=== PATIENT | female | born 1985 | race Native Hawaiian/Other Pacific Islander ===

== ENCOUNTER 2019-12-13 15:08 | Inpatient (IN) | payer MEDICARE, MEDICAID ==
[~2019-12-13] VITALS: Ht 149.9 cm; Wt 61.4 kg
[2019-12-13] MEDS ORDERED: LORazepam 2 mg/ml vial IV ONE (16:30)
[2019-12-13] MEDS ORDERED: LIDOcaine 2% 10ml TOPICAL JELLY (Urojet) MM ONE (16:45)
[2019-12-13] MEDS ORDERED: morphine 4 MG/ML inj SYRINge IV ONE (17:10)
[2019-12-13 17:30] LABS: BASOPHILS % (AUTO) 0.1 % (0-1); EOSINOPHILS % (AUTO) 0.1 % (0-6); HEMATOCRIT 46.7 % (35.0-45.0); HEMOGLOBIN 15.6 g/dl (12.0-16.0); LYMPHOCYTES # (AUTO) 0.4 X10'3 (1.1-4.8); MEAN CORPUSCULAR HEMOGLOBIN 32.2 PG (27.0-31.0); MEAN CORPUSCULAR HGB CONC 33.4 g/dL (33.0-36.5); MEAN CORPUSCULAR VOLUME 96.6 FL (78-98); MEAN PLATELET VOLUME 6.9 FL (7.4-10.4); MONOCYTES # (AUTO) 0.6 X10'3 (0-0.9); MONOCYTES % (AUTO) 2.9 % (2-12); NEUTROPHILS % (AUTO) 94.9 % (42-75); PLATELET COUNT 311 X10'3 (140-440); RED BLOOD COUNT 4.83 X10'6 (4.20-5.60); RED CELL DISTRIBUTION WIDTH 13.5 % (11.5-14.5); WHITE BLOOD COUNT 20.1 X10'3 (4.5-11.0)
--- NOTE | 2019-12-13 17:35 | NUR ---
Windy [phone]
[2019-12-13 17:42] LABS: ALANINE AMINOTRANSFERASE 27 U/L (12-78); ALBUMIN 4.2 G/DL (3.4-5.0); ALKALINE PHOSPHATASE 64 IU/L (46-116); ANION GAP 12 (8-16); ASPARTATE AMINO TRANSFERASE 22 U/L (10-37); BILIRUBIN,TOTAL 0.9 MG/DL (0.1-1.0); BLOOD UREA NITROGEN 17 MG/DL (7-18); BUN/CREATININE RATIO 16.3 (6.6-38.0); CALCIUM 8.8 MG/DL (8.5-10.1); CHLORIDE 101 MMOL/L (99-107); CREATININE 1.04 MG/DL (0.40-0.90); GLUCOSE 158 MG/DL (70-104); SODIUM 136 MMOL/L (135-145); TOTAL CARBON DIOXIDE 23.1 MMOL/L (24-32); TOTAL PROTEIN 8.5 G/DL (6.4-8.2); eGFR 61 ML/MIN
[2019-12-13 17:43] LABS: CLARITY,URINE CLOUDY (Clear); COLOR,URINE YELLOW (Yellow); GLUCOSE, URINE NEGATIVE (Neg); KETONES,URINE TRACE mg/dl (Neg); LEUKOCYTE ESTERASE ,URINE NEGATIVE (Neg); NITRITES, URINE POSITIVE (Neg); OCCULT BLOOD,URINE TRACE-INTACT (Neg); PH,URINE 5.5 (4.8-8.0); PROTEIN,URINE NEGATIVE (Neg)
[2019-12-13 17:46] LABS: UA COLLECTION TYPE VOIDED
[2019-12-13 18:02] LABS: BACTERIA,URINE 4+ /HPF (Neg); MUCUS STRANDS MODERATE /LPF (Neg); RBC,URINE 0-2 /HPF (0-2); SQUAMOUS EPITHELIAL CELL,UR MODERATE /LPF (FEW)
[2019-12-13] MEDS ORDERED: magnesium 4gm in 100ml NS 100 ML IV PRN (19:25)
[2019-12-13] MEDS ORDERED: ondansetron/PF 4mg/2ml inj IV PRN (19:25)
[2019-12-13] MEDS ORDERED: potassium CL 10mEq/100ml bag 100 ML IV PRN ×2 (19:25)
[2019-12-13] MEDS ORDERED: HYDROcodone/acetaminophen 5mg/325mg tablet PO PRN (19:25)
[2019-12-13] MEDS ORDERED: mag hydrox/Alum hydrox/simeth 30ml oral suspension PO PRN (19:25)
[2019-12-13] MEDS ORDERED: magnesium hydroxide 30ml (MOM) UD suspension PO PRN (19:25)
[2019-12-13] MEDS ORDERED: metoclopramide 5 mg/ml inj IV PRN (19:25)
[2019-12-13] MEDS ORDERED: CefTRIAXone/D5W-Rocephin 1gm 50 ML IV ONE (19:25)
[2019-12-13] MEDS ORDERED: magnesium 2GM in 50ml NS 50 ML IV PRN (19:25)
[2019-12-13] MEDS ORDERED: acetaminophen 650mg rectal suppository RC PRN (19:25)
[2019-12-13] MEDS ORDERED: potassium Cl 20 mEq SR tablet PO PRN ×2 (19:25)
[2019-12-13] MEDS ORDERED: magnesium Cl slow-release 64mg tablet PO PRN (19:25)
[2019-12-13] MEDS ORDERED: acetaminophen 325mg tablet PO PRN ×2 (19:25)
[2019-12-13] MEDS ORDERED: HYDROcodone/acetaminophen 10/325mg tab PO PRN (19:25)
[2019-12-13] MEDS ORDERED: bisacodyl 10mg suppository rectal RC PRN (19:25)
[2019-12-13] MEDS ORDERED: HYDROmorphone 1 mg/ml syringe IV PRN (19:25)
[2019-12-13] MEDS ORDERED: clindamycin 600mg/D5W 50ml 50 ML IV ONE (19:25)
[2019-12-13 19:45] LABS: MAGNESIUM 1.8 MG/DL (1.5-2.4); PHOSPHORUS 3.2 MG/DL (2.3-4.5)
[2019-12-13] MEDS ORDERED: tacrolimus anhydrous 1mg capsule PO SCH (20:00)
[2019-12-13] MEDS ORDERED: AZAT50TA18 PO (20:02)
[2019-12-13] MEDS ORDERED: PRED2.5T4 PO (20:02)
[2019-12-13] MEDS ORDERED: TACR1CAP PO (20:02)
[2019-12-13] MEDS: normal saline 1000ml 1,000 ML IV SCH (20:20)
[2019-12-13] MEDS ORDERED: temazepam 15mg capsule PO PRN (21:00)
[2019-12-13] MEDS: K and/or MAG REPLACEMENT MC SCH (21:40)
[2019-12-13] MEDS: diatr meglu/diatrizoate 30ml oral sol.-(3 dose) bottle PO SCH (21:46)
[2019-12-13] MEDS: vancomycin/NS 1 GM ADD-VANTAGE 250 ML IV SCH (21:46)
[2019-12-13] MEDS ORDERED: Chloraseptic (Phenol) Spray 177ml MM PRN ×2 (22:40→22:55)
[2019-12-13] MEDS: HYDROmorphone inj. 0.5 MG/0.5 ML DISP.SYRIN IV PRN (23:15)
[2019-12-13 23:21] VITALS: BP 108/73
[2019-12-14] MEDS: normal saline 1000ml 1,000 ML IV SCH ×3 (05:23→19:50)
[2019-12-14] MEDS: HYDROmorphone inj. 0.5 MG/0.5 ML DISP.SYRIN IV PRN ×3 (05:28→23:07)
[2019-12-14 06:14] LABS: BASOPHILS # (AUTO) 0.1 X10'3 (0-0.2); BASOPHILS % (AUTO) 0.5 % (0-1); EOSINOPHILS # (AUTO) 0.2 X10'3 (0-0.9); EOSINOPHILS % (AUTO) 1.4 % (0-6); HEMATOCRIT 41.1 % (35.0-45.0); HEMOGLOBIN 13.7 g/dl (12.0-16.0); LYMPHOCYTES # (AUTO) 0.8 X10'3 (1.1-4.8); LYMPHOCYTES % (AUTO) 7.9 % (21-51); MEAN CORPUSCULAR HEMOGLOBIN 32.2 PG (27.0-31.0); MEAN CORPUSCULAR HGB CONC 33.3 g/dL (33.0-36.5); MEAN CORPUSCULAR VOLUME 96.6 FL (78-98); MEAN PLATELET VOLUME 6.9 FL (7.4-10.4); MONOCYTES # (AUTO) 0.6 X10'3 (0-0.9); MONOCYTES % (AUTO) 5.4 % (2-12); NEUTROPHILS # (AUTO) 9.1 X10'3 (1.8-7.7); NEUTROPHILS % (AUTO) 84.8 % (42-75); PLATELET COUNT 238 X10'3 (140-440); RED BLOOD COUNT 4.26 X10'6 (4.20-5.60); RED CELL DISTRIBUTION WIDTH 13.6 % (11.5-14.5); WHITE BLOOD COUNT 10.7 X10'3 (4.5-11.0)
--- NOTE | 2019-12-14 06:20 | NUR ---
Problems reprioritized. Patient report given, questions answered & plan of care reviewed with Mallika LONG.
--- NOTE | 2019-12-14 06:24 | NUR ---
Patient in room [facility]. I have received report from Wendi LONG and had the opportunity to ask questions and assume patient care.
[2019-12-14 06:29] LABS: ALANINE AMINOTRANSFERASE 20 U/L (12-78); ALBUMIN 3.3 G/DL (3.4-5.0); ALKALINE PHOSPHATASE 49 IU/L (46-116); ANION GAP 11 (8-16); ASPARTATE AMINO TRANSFERASE 16 U/L (10-37); BILIRUBIN,TOTAL 0.8 MG/DL (0.1-1.0); BLOOD UREA NITROGEN 11 MG/DL (7-18); BUN/CREATININE RATIO 11.7 (6.6-38.0); CALCIUM 7.8 MG/DL (8.5-10.1); CHLORIDE 109 MMOL/L (99-107); CREATININE 0.94 MG/DL (0.40-0.90); GLUCOSE 97 MG/DL (70-104); MAGNESIUM 1.7 MG/DL (1.5-2.4); PHOSPHORUS 2.3 MG/DL (2.3-4.5); POTASSIUM 4.1 MMOL/L (3.5-5.1); SODIUM 141 MMOL/L (135-145); TOTAL CARBON DIOXIDE 20.6 MMOL/L (24-32); TOTAL PROTEIN 6.7 G/DL (6.4-8.2); eGFR 68 ML/MIN
--- NOTE | 2019-12-14 06:30 | NUR ---
Patient in room [facility]. I have received report from Gloria Cazares and had the opportunity to ask questions and assume patient care.
[2019-12-14 07:00] VITALS: BP 103/65
[2019-12-14] MEDS: diatr meglu/diatrizoate 30ml oral sol.-(3 dose) bottle PO SCH ×2 (07:11→10:16)
[2019-12-14] MEDS: CefTRIAXone/D5W-Rocephin 1gm 50 ML IV SCH (07:12)
[2019-12-14 07:28] VITALS: BP 103/65
[2019-12-14] MEDS: vancomycin/NS 1 GM ADD-VANTAGE 250 ML IV SCH ×2 (08:11→19:48)
[2019-12-14] MEDS: K and/or MAG REPLACEMENT MC SCH ×2 (08:16→20:00)
--- NOTE | 2019-12-14 09:30 | NUR ---
Patient in room [facility]. I have received report from MERCEDES Tena and had the opportunity to ask questions and assume patient care.
--- NOTE | 2019-12-14 10:28 | NUR ---
Patient to CT at this time
[2019-12-14] MEDS: tacrolimus anhydrous 1mg capsule PO SCH ×2 (11:02→23:07)
[2019-12-14] MEDS: predniSONE 5mg tablet PO SCH (11:02)
[2019-12-14 11:58] VITALS: BP 111/68
--- NOTE | 2019-12-14 13:10 | NUR ---
PAGER ID: [phone] MESSAGE: MERCEDES Silva [phone] results are up, patient still feeling okay, no nausea. Okay to keep her clamped still? Thank you
--- NOTE | 2019-12-14 18:00 | NUR ---
Nas in room [facility]. I have received report from and had the opportunity to ask questions and assume patient care.
--- NOTE | 2019-12-14 18:17 | NUR ---
Problems reprioritized. Patient report given, questions answered & plan of care reviewed with MERCEDES Medellin.
[2019-12-14 20:00] VITALS: BP 110/75
--- NOTE | 2019-12-14 23:49 | NUR ---
Gave patient dilaudid 0.5 ml for pain in her wrist from her iv. The scanner on the computer would not work
[2019-12-15] VITALS: BP 105/73
--- NOTE | 2019-12-15 06:41 | NUR ---
Problems reprioritized. Patient report given, questions answered & plan of care reviewed with Amy LONG.
--- NOTE | 2019-12-15 06:43 | NUR ---
Patient in room [facility]. I have received report from MERCEDES Med[place]in and had the opportunity to ask questions and assume patient care.
[2019-12-15 07:00] VITALS: BP 115/73
[2019-12-15] MEDS ORDERED: VANCOMYCIN LEVEL IV ONE (07:30)
[2019-12-15 07:41] LABS: BASOPHILS % (AUTO) 0.5 % (0-1); EOSINOPHILS # (AUTO) 0.2 X10'3 (0-0.9); EOSINOPHILS % (AUTO) 3.4 % (0-6); HEMOGLOBIN 12.5 g/dl (12.0-16.0); LYMPHOCYTES # (AUTO) 0.9 X10'3 (1.1-4.8); LYMPHOCYTES % (AUTO) 14.9 % (21-51); MEAN CORPUSCULAR HEMOGLOBIN 32.4 PG (27.0-31.0); MEAN CORPUSCULAR HGB CONC 33.7 g/dL (33.0-36.5); MEAN PLATELET VOLUME 6.3 FL (7.4-10.4); MONOCYTES # (AUTO) 0.4 X10'3 (0-0.9); MONOCYTES % (AUTO) 6.8 % (2-12); NEUTROPHILS # (AUTO) 4.5 X10'3 (1.8-7.7); NEUTROPHILS % (AUTO) 74.4 % (42-75); PLATELET COUNT 234 X10'3 (140-440); RED BLOOD COUNT 3.85 X10'6 (4.20-5.60); RED CELL DISTRIBUTION WIDTH 13.7 % (11.5-14.5); WHITE BLOOD COUNT 6.1 X10'3 (4.5-11.0)
[2019-12-15 07:54] LABS: ALANINE AMINOTRANSFERASE 20 U/L (12-78); ALBUMIN/GLOBULIN RATIO 0.9 (1.1-1.5); ALKALINE PHOSPHATASE 40 IU/L (46-116); ANION GAP 7 (8-16); ASPARTATE AMINO TRANSFERASE 15 U/L (10-37); BILIRUBIN,TOTAL 0.4 MG/DL (0.1-1.0); BLOOD UREA NITROGEN 7 MG/DL (7-18); BUN/CREATININE RATIO 7.6 (6.6-38.0); CALCIUM 7.9 MG/DL (8.5-10.1); CHLORIDE 110 MMOL/L (99-107); CREATININE 0.92 MG/DL (0.40-0.90); GLUCOSE 96 MG/DL (70-104); MAGNESIUM 1.7 MG/DL (1.5-2.4); PHOSPHORUS 2.5 MG/DL (2.3-4.5); POTASSIUM 3.7 MMOL/L (3.5-5.1); SODIUM 141 MMOL/L (135-145); TOTAL CARBON DIOXIDE 24.1 MMOL/L (24-32); TOTAL PROTEIN 6.3 G/DL (6.4-8.2); VANCOMYCIN,TROUGH 11.6 UG/ML (6.0-14.0); eGFR 70 ML/MIN
[2019-12-15] MEDS: K and/or MAG REPLACEMENT MC SCH (08:00)
[2019-12-15] MEDS: CefTRIAXone/D5W-Rocephin 1gm 50 ML IV SCH (08:11)
[2019-12-15] MEDS: vancomycin/NS 1 GM ADD-VANTAGE 250 ML IV SCH (09:10)
[2019-12-15] MEDS: predniSONE 5mg tablet PO SCH (11:26)
[2019-12-15] MEDS: tacrolimus anhydrous 1mg capsule PO SCH (11:27)
--- NOTE | 2019-12-15 11:56 | NUR ---
Pt D/C'd home in stable condition. Tolerated regular diet well. medication and discharged instructions given to pt. IV removed with cannula intact. Pt was escorted to main lobby on w/c. left the hospital via private vehicle accompanied by .
[2019-12-15] MEDS ORDERED: VANCOmycin 1250MG/NS 250ml Bag 250 ML IV SCH (20:00)
--- NOTE | 2019-12-16 10:14 | NUR ---
Case Management DC follow up: spoke to pt via telephone. s/p: sbo Reports: "doing good, minor abd pain, bloating, passing gas, a little dizzy sometimes". Reports staying hydrated, eating light, soft portions. Pt having regular bowel movements, a little diarrhea. Pt states she feels it is feom the contrast r/t tests in hospital. states good support in spouse. Denies: acute/continuous CP, emergent SOB, resp distress, N/V, ROS[place]HAL, blurry vision, vertigo, syncope episodes, weakness,emergent general pain,, bladder pain, dysuria, polyuria, hematuria, retention, constipation, fever, unexplained bleeding, bruising. Verbalizes understanding of s/s that warrant 9-11/ER visit for further evaluation. Verbalizes understanding of Rx and why prescribed, resumes current Rx, taking as ordered, no ase r/t polypharmacy. Acknowledges need to schedule/keep follow up appts w/ PCP/Juana at [facility], [place], [place]. Verbalizes compliance w/DC aftercare. Needs met, questions answered at DC, no further questions or concerns at this time.
[2019-12-17] MEDS ORDERED: VANCOMYCIN LEVEL IV ONE (07:30)
== END 2019-12-15 11:55 | disposition home or self-care (01) | DRG 389 ==
LOC: ER 15:09 → ED HOLD 19:23 → SUR 3N 21:30
PROVIDERS: ADMIT Family Medicine; ATTEND Internal Medicine
DX: K56.600 Partial intestinal obstruction, unspecified as to cause (principal); Z94.0 Kidney transplant status; D72.829 Elevated white blood cell count, unspecified; N18.9 Chronic kidney disease, unspecified; F12.90 Cannabis use, unspecified, uncomplicated; F41.1 Generalized anxiety disorder; Z90.49 Acquired absence of other specified parts of digestive tract; Z79.899 Other long term (current) drug therapy; Z90.710 Acquired absence of both cervix and uterus; Z93.3 Colostomy status
CPT/HCPCS: 36415; 74018; 74176; 80053; 80202; 81001; 83605; 83735; 84100; 84145; 85025; 87040; 87081; 87088; 96374; 96375; 99285; G0378; J0696; J1170; J2060; J2270; J3370; J3490; J7030; J7500; J7512; Q9963